=== PATIENT | female | born 2000 | race Two or more races ===

== ENCOUNTER 2019-10-12 22:49 | Emergency (ER) | payer OTHER ==
[~2019-10-12] VITALS: Ht 165.1 cm; Wt 68.0 kg
[2019-10-12] MEDS ORDERED: HYDROCODONE/APAP 5/325MG 1 EACH TABLET PO ONE (23:30)
[2019-10-12] MEDS ORDERED: CARISOPRODOL 350 MG TABLET PO ONE (23:30)
[2019-10-12] MEDS ORDERED: HYDROCODONE/APAP 5/325MG 1 EACH TABLET ONE (23:34)
[2019-10-12] MEDS ORDERED: CARISOPRODOL 350 MG TABLET ONE (23:34)
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
--- NOTE | 2019-10-13 01:43 | NUR ---
Patient discharged to home in stable condition. Written and verbal after care instructions given. Patient verbalizes understanding of instruction and RX. Pt given crutches. VSS. PT demonstrated proper use of crutches. Ambulated with crutches, left with Boyfriend and Family.
[2019-10-13 01:44] VITALS: BP 124/76
== END 2019-10-13 02:00 | disposition home or self-care (01) ==
LOC: ER 22:51
DX: S83.8X1A Sprain of other specified parts of right knee, initial encounter (principal); S20.211A Contusion of right front wall of thorax, initial encounter; M79.642 Pain in left hand; M79.641 Pain in right hand; M54.6 Pain in thoracic spine; V49.59XA Passenger injured in collision with other motor vehicles in traffic accident, initial encounter; Y93.89 Activity, other specified; Y92.413 State road as the place of occurrence of the external cause; Y99.8 Other external cause status
CPT/HCPCS: 71045-TC; 72074-TC; 73130-TC; 73564-TC